=== PATIENT | male | born 1965 | race Hispanic/Latino ===

== ENCOUNTER 2017-02-16 18:47 | Emergency (ER) | payer OTHER ==
[2017-02-16 18:49] VITALS: BP 0/0
== END 2017-02-16 18:59 | disposition expired | DRG 914 ==
LOC: ED 18:47 → EDBD 18:49 → ED 18:59
PROC: 5A12012 Performance of Cardiac Output, Single, Manual (ICD-10-PCS; principal; 2017-02-16)
DX: T14.90 Injury, unspecified (principal); R31.0 Gross hematuria; I46.8 Cardiac arrest due to other underlying condition; S30.811A Abrasion of abdominal wall, initial encounter; S49.82XA Other specified injuries of left shoulder and upper arm, initial encounter; V49.9XXA Car occupant (driver) (passenger) injured in unspecified traffic accident, initial encounter; R40.2432 Glasgow coma scale score 3-8, at arrival to emergency department